=== PATIENT | female | born 1935 | race Hispanic/Latino ===

== ENCOUNTER 2017-11-19 12:25 | Emergency (ER) | payer MEDICARE, OTHER ==
[~2017-11-19] VITALS: Ht 160 cm; Wt 68.0 kg
[~2017-11-19 12:25] MED LIST: ADVIL200 M1 PO; ASPIRIN81 MG PO; AZILECT1 MG PO; ETODOLAC400 M1 PO; ETODOLAC400 MG PO; TRIGOSAMINE PO; TYLENOL # 31 EA PO
[2017-11-19] MEDS ORDERED: MORPHINE SULFATE 2 MG/ML SYR IV STA (13:22)
[2017-11-19 13:31] LABS: BASOPHILS # (AUTO) 0.1 (0.0-0.1); BASOPHILS % 0.7 % (0.0-1.0); EOSINOPHILS # (AUTO) 0.1 (0.0-0.4); EOSINOPHILS % 1.3 % (0.0-6.0); HEMATOCRIT 41.7 % (34.2-44.1); HEMOGLOBIN 14.2 g/dL (12.0-16.0); LYMPHOCYTES # (AUTO) 1.2 (1.0-3.2); MEAN CORPUSCULAR HEMOGLOBIN 28.9 pg (28-32); MEAN CORPUSCULAR HGB CONC 34.1 g/dL (31-35); MEAN CORPUSCULAR VOLUME 84.8 fL (81-99); MONOCYTES # (AUTO) 0.6 (0.2-0.8); MONOCYTES % 5.9 % (4.4-11.3); NEUTROPHILS # (AUTO) 8.5 (2.1-6.9); NEUTROPHILS % 80.8 % (38.7-80.0); PLATELET COUNT 402 x10e3/uL (140-360); RED BLOOD COUNT 4.92 x10e6/uL (3.6-5.1); RED CELL DISTRIBUTION WIDTH 13.2 % (11.7-14.4)
[2017-11-19] MEDS ORDERED: KETOROLAC TROMETHAMINE 30 MG/ML VIAL IV STA (13:35)
[2017-11-19 13:40] LABS: INR 1.11; PROTHROMBIN TIME 13.5 seconds (11.9-14.5)
[2017-11-19 13:41] LABS: PARTIAL THROMBOPLASTIN TIME 29.6 seconds (23.8-35.5)
[2017-11-19] MEDS ORDERED: DIATRIZOATE MEGL/DIATRIZOA SOD 30 ML BTL PO ONE ×2 (13:42→14:31)
[2017-11-19 13:54] LABS: ALBUMIN 4.3 g/dL (3.5-5.0); ANION GAP 15.9 mmol/L (8-16); CALCIUM 9.9 mg/dL (8.4-10.2); CREATININE, SERUM 0.96 mg/dL (0.57-1.11); POTASSIUM 3.9 mmol/L (3.5-5.1)
--- NOTE | 2017-11-19 15:42 | Diagnostic Imaging Report ---
PROCEDURE:CT ABDOMEN AND PELVIS WITH CONTRAST COMPARISON:None. INDICATIONS:RLQ PAIN TECHNIQUE: Multidetector CT scanning of the abdomen and pelvis was performed after the administration of 100 cc of nonionic contrast. Oral contrast was also administered. Coronal and sagittal reformations were obtained. Routine protocol performed. FINDINGS: Lung bases: Clear. There is a small hiatal hernia. Liver: The liver is decreased attenuation consistent with steatosis. No mass. Biliary: Gallbladder is present and normal in appearance. No biliary ductal dilatation. Spleen: Normal size and attenuation without mass. Pancreas: Mild atrophy. No mass or ductal dilatation. Adrenal Glands: No mass. Kidneys: The lobulated contour. No hydronephrosis. The left kidney is slightly smaller than the right. No defined mass. Gastrointestinal: The stomach is collapsed. Small bowel is normal in diameter with normal wall thickness. There is a large amount of stool throughout the left colon, particularly the rectum. No mural thickening or pericolonic inflammation. The appendix is visualized and is normal. Vasculature: The aorta is mildly ectatic but normal in diameter. Peritoneum/Retroperitoneum: No free fluid or fluid collection. Lymph nodes: No lymphadenopathy. Bladder: Well-distended and is normal. No ureteral dilatation. Reproductive organs: The uterus is absent. There no adnexal masses. Musculoskeletal: Postoperative changes of the spine consistent with laminectomy. There is no evidence of hardware. There are moderate degenerative changes throughout the lumbar spine with posterior disc osteophyte complexes at L1-2 and L2-3 and to a lesser extent L3-4. Mild wedging of the L1 vertebral body is present, approximately 30%. There are no destructive lesions. Soft tissues: No evidence of hernia. CONCLUSION: 1. Large stool burden, particularly in the rectum, suggestive of fecal impaction. No bowel obstruction. Normal appendix. 2. Hepatic steatosis. 3. Postoperative changes of the spine as described above. 4. Lobulated renal contours could be congenital or from previous bouts of urinary tract infections. Diminutive left kidney. 5. Small hiatal hernia. Dictated by: Joseluis Marie M.D. on 11/19/2017 at 15:42 Electronically approved by: Joseluis Marie M.D. on 11/19/2017 at 15:42
[2017-11-19 17:36] LABS: BILIRUBIN,URINE 2+ (NEGATIVE); KETONES,URINE NEGATIVE (NEGATIVE); LEUKOCYTE ESTERASE ,URINE NEGATIVE (NEGATIVE); PROTEIN,URINE DIPSTICK NEGATIVE (NEGATIVE); URINE UROBILINOGEN 4 mg/dL (0.2 - 1)
[2017-11-19 17:38] LABS: CLARITY,URINE SL CLOUDY (CLEAR); COLOR,URINE ORANGE (YELLOW); NITRITE,URINE POSITIVE (NEGATIVE)
[2017-11-19] MEDS ORDERED: KETOROLAC TROMETHAMINE 30 MG/ML VIAL ONE (17:59)
[2017-11-19] MEDS ORDERED: SODIUM CHLORIDE 0.9% 50ML 50 ML ONE (20:31)
[2017-11-19] MEDS ORDERED: IOPAMIDOL 370 MG/ML 200 ML INFUS..BTL INJ ONE (20:31)
== END 2017-11-19 23:05 ==
LOC: ER 12:25
DX: R10.30 Lower abdominal pain, unspecified (principal); R11.0 Nausea; K59.00 Constipation, unspecified; N39.0 Urinary tract infection, site not specified
CPT/HCPCS: 36415; 74177; 80053; 81001; 82150; 83690; 85025; 85610; 85730; 99284; J1885; Q9967